=== PATIENT | male | born 2005 | race African-American/Black ===

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

== ENCOUNTER 2025-05-20 14:05 | Emergency (ER) | payer MEDICAID ==
[~2025-05-20] VITALS: Ht 172.7 cm; Wt 80.0 kg
[2025-05-20 14:07] VITALS: TEMP 99.1; O2SAT 97
[2025-05-20] MEDS ORDERED: VALPROATE SODIUM IV ONE (14:45)
[2025-05-20] MEDS ORDERED: SODIUM CHLORIDE 0.9% IV ONE (14:45)
[2025-05-20 15:10] LABS: BASOPHILS % 0.6 % (0.0-2.0); EOSINOPHILS % 0.2 % (0.0-5.0); HEMATOCRIT. 44.1 % (42.0-52.0); HEMOGLOBIN. 14.6 g/dL (14.0-18.0); LYMPHOCYTES % 21.6 % (20.0-50.0); MEAN PLATELET VOLUME 9.3 fl (7.4-10.4); MONOCYTES % 8.7 % (2.0-8.0); NEUTROPHILS % 68.9 % (40.0-76.0); PLATELET 227 x1000/uL (130-400); RED BLOOD CELL COUNT 5.20 mill/uL (4.7-6.1); RED CELL DISTRIBUTION WIDTH 13.9 % (11.6-14.6)
[2025-05-20 15:27] LABS: CREATININE 1.0 mg/dL (0.6-1.3)
[2025-05-20 15:28] LABS: TROPONIN I HIGH SENSITIVITY 5 ng/L (3.0-53); UREA NITROGEN BLOOD 9 mg/dL (9-23)
[2025-05-20 15:29] LABS: ASPARTATE AMINOTRANSFERASE 131 IU/L (<34); CARBAMAZEPINE < 0.4 ug/mL (4-12); PHENYTOIN < 2.0 ug/mL (10-20)
[2025-05-20 15:30] LABS: BILIRUBIN DIRECT 0.1 mg/dL (<=3.0); BILIRUBIN TOTAL 0.5 mg/dL (0.1-1.0); PROTEIN TOTAL 7.6 g/dL (6.0-8.3)
[2025-05-20] MEDS: SODIUM CHLORIDE 0.9% 1,000 ML IV ONE (15:32)
[2025-05-20 15:40] LABS: VALPROIC ACID 109.3 ug/mL (50-100)
[2025-05-20 17:16] LABS: *AMPHETAMINES SCREEN URINE NEGATIVE (NEGATIVE); *BARBITURATES SCREEN URINE NEGATIVE (NEGATIVE); *BENZODIAZEPINES SCREEN URINE NEGATIVE (NEGATIVE); *COCAINE SCREEN URINE NEGATIVE (NEGATIVE); CANNABINOID URINE SCREEN NEGATIVE (NEGATIVE); ECSTASY MDMA SCREEN URINE NEGATIVE (NEGATIVE); METHADONE URINE SCREEN NEGATIVE (NEGATIVE); OPIATES URINE SCREEN NEGATIVE (NEGATIVE); PHENCYCLIDINE URINE SCREEN NEGATIVE (NEGATIVE)
[2025-05-20 17:21] VITALS: BP 125/74; PULSE 81; RESP 18; O2SAT 98
[2025-05-20 17:53] LABS: CLARITY URINE CLEAR (CLEAR); COLOR URINE YELLOW (YELLOW)
[2025-05-20 17:54] LABS: GLUCOSE URINE NEGATIVE (NEGATIVE); KETONES URINE 1+ (NEGATIVE); LEUKOCYTE ESTERASE URINE NEGATIVE (NEGATIVE); NITRITE URINE NEGATIVE (NEGATIVE); OCCULT BLOOD URINE 1+ (NEGATIVE); PH URINE 7.5 (4.5-8.0); PROTEIN URINE TRACE (NEGATIVE); SPECIFIC GRAVITY URINE 1.017 (1.005-1.030); UROBILINOGEN URINE 0.2 E.U./dL (0.2-1.0)
== END 2025-05-20 17:24 | disposition home or self-care (01) ==
LOC: ER 14:05
DX: R56.9 Unspecified convulsions (principal); R00.0 Tachycardia, unspecified
CPT/HCPCS: 80076; 80305; 80048; 81003; 80320; 80156; 80185; 80165; 85025; 84484; 36415; 70450; 93005; 96361; 96365; 99285; 82542; J3490; J7060; J7030; J7050; G0480